=== PATIENT | female | born 1970 | race Caucasian/White ===

== ENCOUNTER 2018-12-18 09:58 | Day surgery (SDC) | payer OTHER ==
[~2018-12-18] VITALS: Ht 162.6 cm; Wt 109.3 kg
[~2018-12-18 09:58] MED LIST: NO ACTIVE MEDS
[2018-12-18 10:37] VITALS: Ht 162.6 cm; Wt 109.3 kg
[2018-12-18] MEDS ORDERED: PROPOFOL 20 ML ONE ×2 (11:41→12:16)
[2018-12-18] MEDS ORDERED: FENTAnyl 50 MCG/ML VIAL ONE (11:42)
[2018-12-18 11:45] VITALS: BP 117/65; PULSE 68; RESP 20
[2018-12-18 12:24] VITALS: BP 91/55; PULSE 66; RESP 16
[2018-12-18 12:39] VITALS: BP 102/57; PULSE 61; RESP 14
== END 2018-12-18 16:02 | disposition home or self-care (01) ==
LOC: GIL 09:58
PROVIDERS: ATTEND Internal Medicine Gastroenterology
DX: K64.8 Other hemorrhoids (principal); K57.30 Diverticulosis of large intestine without perforation or abscess without bleeding; K29.50 Unspecified chronic gastritis without bleeding; B96.81 Helicobacter pylori [H. pylori] as the cause of diseases classified elsewhere
CPT/HCPCS: 43239; 45378; 84703; 88305; 88312; J3010; Z7610